=== PATIENT | male | born 1965 | race Caucasian/White ===

== ENCOUNTER → 2017-12-18 | Outpatient (CLI) | payer OTHER ==
--- NOTE | 2017-12-18 10:27 | XR ---
EXAMINATION TYPE: XR shoulder complete RT DATE OF EXAM: 12/18/2017 COMPARISON: NONE HISTORY: 52-year-old male slipped and fall, pain TECHNIQUE: 3 views FINDINGS: Mild degenerative joint space narrowing at the AC joint. Subacromial space is preserved. No tendinous or bursal calcifications. No acute fracture, subluxation, or dislocation seen. Visualized right mariusz thorax is clear. IMPRESSION: Mild AC joint OA. No acute osseous abnormality seen.
== END | disposition home or self-care (01) ==
LOC: RADXRMAIN 09:54
PROVIDERS: ATTEND Emergency Medicine
DX: M19.011 Primary osteoarthritis, right shoulder (principal)

== ENCOUNTER → 2017-12-31 | Outpatient (CLI) | payer OTHER | LOC: RADMRIMAIN 14:11 | PROVIDERS: ATTEND Emergency Medicine | DX: Z53.9 Procedure and treatment not carried out, unspecified reason (principal) ==

== ENCOUNTER 2020-04-14 07:41 | Day surgery (SDC) | payer BC ==
[2020-04-13 10:22] VITALS: BMI 28.0
[~2020-04-14 07:41] MED LIST: LACTATED RINGERS 1,000 ML IV SCH
[2020-04-14 08:19] VITALS: RESP 16; TEMP 97.2
[2020-04-14] MEDS ORDERED: LIDOCAINE 1% (10MG/ML) FOR IV START INTRADERMA ONE (08:19)
[2020-04-14] MEDS ORDERED: PROPOFOL 10 MG/ML 20 ML VIAL IV ONE (08:32)
--- NOTE | 2020-04-14 09:00 | P.PCN ---
Date of Procedure: 04/14/20 Description of Procedure: BRIEF HISTORY: Patient is a 54-year-old male seen for outpatient colonoscopy for screening for malignant neoplasm of the colon. Patient denies any change in bowel habits, blood per rectum or abdominal pain. No prior colonoscopy. PROCEDURE PERFORMED: Colonoscopy with polypectomy. PREOPERATIVE DIAGNOSIS: Screening for malignant neoplasm of the colon, no prior colonoscopy. ESTIMATED BLOOD LOSS: Minimal. IV sedation per Anesthesia. PROCEDURE: After informed consent was obtained, the patient, was brought into the endoscopy unit. IV sedation was administered by Anesthesia under continuous monitoring. Digital rectal examination was normal. Initially the Olympus CF-190 flexible video colonoscope was then inserted in the rectum, gradually advanced into the cecum without any difficulty. Careful examination was performed as the scope was gradually being withdrawn. Ileocecal valve and the appendiceal orifice were visualized and appeared normal. Prep was excellent. Mucosa of the cecum, ascending colon, transverse colon, descending colon, sigmoid colon, and rectum appeared normal, Except for a few scattered diverticula in the sigmoid colon and 2 diminutive polyps in the sigmoid colon removed with cold forcep polypectomy that may represent hyperplastic polyps. . Retroflexion was performed in the rectum and no lesions were seen. The patient tolerated the procedure well. IMPRESSION: 2 diminutive polyps in the sigmoid colon removed with cold forcep polypectomy, suspect hyperplastic polyps. Mild sigmoid diverticulosis. RECOMMENDATIONS: Findings of this examination were discussed with the patient. Okay to resume diet. Okay to resume medications. Await pathology from polypectomy. Recommend repeat colonoscopy in 7 years, unless polyps are confirmed as hyperplastic in nature and recommendation would be for 10 year screening.
[2020-04-14 09:19] VITALS: BP 132/88; PULSE 80
== END 2020-04-14 09:35 | disposition home or self-care (01) ==
LOC: ORWHC2ENDO 07:41
PROVIDERS: ATTEND Internal Medicine
DX: Z12.11 Encounter for screening for malignant neoplasm of colon (principal); K63.5 Polyp of colon; K57.30 Diverticulosis of large intestine without perforation or abscess without bleeding; Z88.0 Allergy status to penicillin; Z98.890 Other specified postprocedural states
CPT/HCPCS: 88305; 45380; J2704